=== PATIENT | male | born 1970 | race Caucasian/White ===

== ENCOUNTER 2019-01-02 03:23 | Emergency (ER) | payer BC, OTHER ==
[~2019-01-02 03:23] MED LIST: ADVI1CAP2 PO; AMLO5TAB6 PO; BACL10TA2 PO; CIPR-249 PO; DICL75TA PO; EXCETAB80 PO; FLAG500T PO; FLEXERIL PO; GABA-843 PO; LIDO1OIN2 TOP; MELO15TA28 PO; NORV5TAB PO; SOMA250T PO; TRAM50TA2 PO; VICO5TAB17 PO; VICODIN PO; [UNRECOGNIZED DRUG - OTHER] TOP; [UNRECOGNIZED DRUG - REMARK] PO
[2019-01-02] MEDS ORDERED: NS 1,000 ML IV ONE (04:45)
[2019-01-02] MEDS ORDERED: METOCLOPRAMIDE INJ 10MG/2ML VIAL (J2765) IV ONE (04:45)
[2019-01-02 05:05] LABS: BASO # 0.1 10^3/uL (0.0-0.2); BASO % 0.8 % (0.0-1.0); EOS # 0.2 10^3/uL (0.0-0.50); EOS % 1.4 % (0.0-3.0); HEMATOCRIT 47.2 % (42.0-52.0); HEMOGLOBIN 15.8 g/dl (13.5-17.5); LYMPH # 1.3 10^3/uL (1.5-4.5); LYMPH % 11.5 % (24.0-44.0); MEAN CORPUSCULAR HEMOGLOBIN 28.9 pg (27.0-33.0); MEAN CORPUSCULAR HGB CONC 33.5 g/dl (32.0-36.5); MEAN CORPUSCULAR VOLUME 86.4 fl (80.0-96.0); MONO # 0.6 10^3/uL (0.0-0.8); NEUTROPHILS # 9.2 10^3/uL (1.8-7.7); NEUTROPHILS % 80.9 % (36.0-66.0); PLATELET COUNT, AUTOMATED 230 10^3/uL (150-450); RED BLOOD COUNT 5.46 10^6/uL (4.30-6.10); WHITE BLOOD COUNT 11.4 10^3/uL (4.0-10.0)
[2019-01-02] MEDS ORDERED: diphenhydrAMINE INJ 50MG/ML VIAL (J1200) IV STA (05:12)
[2019-01-02] MEDS ORDERED: HALOPERIDOL 5 MG/ML VIAL (J1630) IV STA (05:12)
[2019-01-02 05:29] LABS: ALBUMIN 3.8 GM/DL (3.2-5.2); ALT/SGPT 46 U/L (12-78); BILIRUBIN,DIRECT < 0.1 MG/DL (0.0-0.2); BILIRUBIN,TOTAL 0.4 MG/DL (0.2-1.0); BLOOD UREA NITROGEN 16 MG/DL (7-18); C REACTIVE PROTEIN QUANTITATIV 0.32 MG/DL (0.00-0.30); CALCIUM LEVEL 8.4 MG/DL (8.5-10.1); CARBON DIOXIDE LEVEL 25 MEQ/L (21-32); CHLORIDE LEVEL 112 MEQ/L (98-107); CPK CREATINE PHOSPHOKINASE 276 U/L (39-308); CREATININE FOR GFR 1.19 MG/DL (0.70-1.30); ERYTHROCYTE SEDIMENTATION RATE 4 mm/hr (0-20); GLOMERULAR FILTRATION RATE > 60.0 (>56); GLUCOSE, FASTING 140 MG/DL (70-100); LIPASE 140 U/L (73-393); MB/CK RELATIVE INDEX 1.81 (< OR =4); POTASSIUM SERUM 4.2 MEQ/L (3.5-5.1); SODIUM LEVEL 143 MEQ/L (136-145); TOTAL PROTEIN 7.3 GM/DL (6.4-8.2); TROPONIN I < 0.02 NG/ML (< 0.10)
[2019-01-02] MEDS ORDERED: ISOVUE-370 76% 100ML VIAL (Q9967) As Ordered ONE (05:57)
[2019-01-02] MEDS ORDERED: KETOROLAC 30 MG/ML VIAL (J1885) IV ONE (06:00)
--- NOTE | 2019-01-02 06:40 | REPVR ---
EXAM: CT Left Lower Extremity Without Contrast. Hip EXAM DATE/TIME: 01/02/2019 6:25 AM CLINICAL HISTORY: 48 years old, male; Pain; Hip; Left; Additional info: Hip pain / vomiting TECHNIQUE: Imaging protocol: CT of the Left lower extremity without contrast was performed. Exam focused on the hip. Coronal and sagittal reformatted images were created and reviewed. Radiation optimization: All CT scans at this facility use at least one of these dose optimization techniques: automated exposure control; mA and/or kV adjustment per patient size (includes targeted exams where dose is matched to clinical indication); or iterative reconstruction. COMPARISON: SR CT ABD PELVIS WITH CONTRAST 03/13/2015 8:18 PM FINDINGS: Bones/joints: There is no appreciable joint effusion. There is no evidence of acute fracture or dislocation. There is mild joint space narrowing at the superolateral aspect of the left hip. Small subchondral cysts and mild subchondral sclerosis are present. Calcifications are seen adjacent to the greater trochanter, probably related to calcific tendinitis, at least some of which was present on the prior CT scan from 2014. Soft tissues: The musculature appears unremarkable. No fluid collection is identified. IMPRESSION: No definite acute abnormality identified. Calcification adjacent to the greater trochanter likely related to calcific tendinitis, at least some of which was present on the prior exam from 2014. Electronically signed by: Alexandra Ervin On 01/02/2019 06:39:36 AM
--- NOTE | 2019-01-02 06:44 | REPVR ---
EXAM: CT Abdomen and Pelvis With Contrast EXAM DATE/TIME: 01/02/2019 6:25 AM CLINICAL HISTORY: 48 years old, male; Pain; Abdominal pain; Additional info: Hip pain / vomiting TECHNIQUE: Imaging protocol: Axial computed tomography images of the abdomen and pelvis with intravenous contrast. Coronal and sagittal reformatted images were created and reviewed. Radiation optimization: All CT scans at this facility use at least one of these dose optimization techniques: automated exposure control; mA and/or kV adjustment per patient size (includes targeted exams where dose is matched to clinical indication); or iterative reconstruction. Contrast material: iso 370 Contrast volume: 100 ml Contrast route: iv COMPARISON: CT ABD PELVIS WITH CONTRAST 03/13/2015 8:18 PM FINDINGS: Lower thorax: There is minimal, nonspecific dependent density in the lung bases. Assessment limited by motion artifact through the lung bases. ABDOMEN: Liver: There is a diffuse decrease in hepatic parenchymal density, consistent with fatty infiltration. Gallbladder and bile ducts: The gallbladder is normal with no stones or biliary ductal dilation. Pancreas: The pancreas is normal with no ductal dilation. Spleen: The spleen is normal. Adrenals: The adrenal glands are normal. Kidneys and ureters: There is a nonobstructing 3 mm stone in the right kidney midpole. There are no ureteral stones or hydronephrosis. Stomach and bowel: Diverticulosis is present throughout the colon but most prominent in the left colon and the proximal sigmoid colon. There is no dilation or thickening of the colon. The small bowel appears unremarkable. Appendix: A normal appendix is identified. PELVIS: Bladder: The bladder is unremarkable. No stones identified. Reproductive: The prostate gland and seminal vesicles are normal. ABDOMEN and PELVIS: Intraperitoneal space: There is no evidence of free intraperitoneal or pelvic fluid. There is no free intraperitoneal air. Bones/joints: No suspicious osseous lesions. No acute fractures or dislocations. Degenerative endplate changes are seen at multiple levels in the visualized spine. Soft tissues: There is a small periumbilical hernia containing fat. Vasculature: The aorta demonstrates mild atherosclerotic calcification. Lymph nodes: No lymphadenopathy is seen. IMPRESSION: 1. Diverticulosis but no evidence of acute diverticulitis. 2. Fatty liver. 3. Nonobstructing 3 mm stone in the right kidney. No hydronephrosis or ureteral stones identified. Electronically signed by: Alexandra Ervin On 01/02/2019 06:44:23 AM
[2019-01-02] MEDS ORDERED: dexameTHASONE 20 MG/5 ML VIAL (J1100) IV ONE (06:45)
[2019-01-02] MEDS ORDERED: REGL10TA6 PO (06:49)
[2019-01-02] MEDS ORDERED: PRED20TA PO (06:49)
[2019-01-02 07:35] VITALS: BP 152/80
== END 2019-01-02 07:43 | disposition home or self-care (01) ==
LOC: M ED 03:23
DX: M25.552 Pain in left hip (principal); M65.252 Calcific tendinitis, left thigh; T42.8X5A Adverse effect of antiparkinsonism drugs and other central muscle-tone depressants, initial encounter; R11.10 Vomiting, unspecified; I10 Essential (primary) hypertension; M54.5 Low back pain; Z88.5 Allergy status to narcotic agent; Z88.6 Allergy status to analgesic agent; Z91.040 Latex allergy status; Z91.013 Allergy to seafood; Z79.899 Other long term (current) drug therapy
CPT/HCPCS: 73700; 74177; 80048; 80076; 82550; 82553; 83690; 84484; 85025; 85652; 86140; 96374; 96375; 99284; J1100; J1200; J1630; J1885; J2765; Q9967

== ENCOUNTER → 2019-03-31 | Outpatient (CLI) | payer BC, OTHER ==
[~2019-03-31] MED LIST changes: +PRED20TA PO; +REGL10TA6 PO
[2019-03-31 20:31] LABS: BASO # 0.1 10^3/uL (0.0-0.2); BASO % 0.5 % (0.0-1.0); EOS # 0.8 10^3/uL (0.0-0.50); EOS % 7.2 % (0.0-3.0); HEMATOCRIT 44.4 % (42.0-52.0); HEMOGLOBIN 15.4 g/dl (13.5-17.5); LYMPH # 2.2 10^3/uL (1.5-4.5); MEAN CORPUSCULAR HEMOGLOBIN 29.6 pg (27.0-33.0); MEAN CORPUSCULAR HGB CONC 34.7 g/dl (32.0-36.5); MEAN CORPUSCULAR VOLUME 85.2 fl (80.0-96.0); MONO # 0.8 10^3/uL (0.0-0.8); MONO % 7.1 % (0.0-5.0); NEUTROPHILS # 7.1 10^3/uL (1.8-7.7); NEUTROPHILS % 64.9 % (36.0-66.0); PLATELET COUNT, AUTOMATED 264 10^3/uL (150-450); RED BLOOD COUNT 5.21 10^6/uL (4.30-6.10); WHITE BLOOD COUNT 10.9 10^3/uL (4.0-10.0)
[2019-03-31 21:03] LABS: ALBUMIN 3.9 GM/DL (3.2-5.2); ALT/SGPT 41 U/L (12-78); BILIRUBIN,TOTAL 0.5 MG/DL (0.2-1.0); BLOOD UREA NITROGEN 23 MG/DL (7-18); CALCIUM LEVEL 8.8 MG/DL (8.5-10.1); CARBON DIOXIDE LEVEL 33 MEQ/L (21-32); CHLORIDE LEVEL 99 MEQ/L (98-107); CREATININE FOR GFR 1.24 MG/DL (0.70-1.30); FREE T4 0.95 NG/DL (0.76-1.46); GLOMERULAR FILTRATION RATE > 60.0 (>56); GLUCOSE, FASTING 93 MG/DL (70-100); POTASSIUM SERUM 3.2 MEQ/L (3.5-5.1); SODIUM LEVEL 140 MEQ/L (136-145); TOTAL PROTEIN 7.3 GM/DL (6.4-8.2)
[2019-03-31 21:45] LABS: ERYTHROCYTE SEDIMENTATION RATE 2 mm/hr (0-20)
[2019-04-04 00:06] LABS: Lyme Disease IgG/IgM Antibodie <0.91 ISR (0.00-0.90); Lyme Disease IgM Ab Quantitati <0.80 index (0.00-0.79)
== END ==
LOC: M WUC 18:22
PROVIDERS: ATTEND Physician Assistant
DX: R21 Rash and other nonspecific skin eruption (principal)

== ENCOUNTER → 2020-05-23 | Outpatient (CLI) | payer OTHER, BC ==
[~2020-05-23] MED LIST changes: +AMLO1TAB24 PO; -AMLO5TAB6 PO; +DIAZ5TAB PO; +EXCETAB33 PO; +HYDR-643 PO; +PROP60TA14 PO; +SILD100T PO
== END ==
LOC: M LABSMTC 10:37
PROVIDERS: ATTEND Anesthesiology
DX: Z03.818 Encounter for observation for suspected exposure to other biological agents ruled out (principal); Z11.59 Encounter for screening for other viral diseases
CPT/HCPCS: C9803; U0003

== ENCOUNTER → 2020-05-28 | Outpatient (CLI) | payer OTHER ==
[~2020-05-28] MED LIST changes: +MIDAZOLAM INJ 2MG/2ML VIAL (J2250 PER 1MG) As Ordered ONE
[2020-05-28 12:20] VITALS: BP 139/81
--- NOTE | 2020-05-28 12:50 | REPVR ---
PROCEDURE INFORMATION: Exam: MR Lumbar Spine Without Contrast. Exam date and time: 05/28/2020 11:24 AM Age: 50 years old Clinical indication: Low back pain; Additional info: Lbp w radiating to legs TECHNIQUE: Imaging protocol: Multiplanar magnetic resonance images of the lumbar spine without intravenous contrast. COMPARISON: No relevant prior studies available. FINDINGS: Vertebrae: There is 3 mm of grade 1 retrolisthesis of L5 with respect to S1. Normal vertebral body alignment is otherwise preserved. Vertebral body heights are within normal limits. Spinal cord: Normal signal. No cord compression. L1-L2: There is shallow disc bulging. There is mild facet hypertrophy. There is mild bilateral neural foraminal narrowing. L2-L3: There is mild facet hypertrophy. There is mild bilateral neural foraminal narrowing. L3-L4: There is shallow disc bulging. There is mild facet hypertrophy. Trace fluid is noted within the facet joints. There is mild bilateral neural foraminal narrowing. L4-L5: There is diffuse disc bulging. There is severe right and moderate left facet hypertrophy. Fluid is noted within the right facet joint. There is moderate right lateral recess stenosis. There is mild canal stenosis. There mild moderate bilateral neural foraminal narrowing. L5-S1: There is diffuse disc bulging. There is moderate facet hypertrophy. There is mild right and moderate to severe left neural foraminal narrowing. Soft tissues: Unremarkable. IMPRESSION: Degenerative disc disease and spondylosis. At L5/S1, changes contribute to moderate to severe left neural foraminal narrowing. Electronically signed by: Annie Townsend On 05/28/2020 12:49:43 PM
== END ==
LOC: M SDC 10:13
PROVIDERS: ATTEND Family Medicine
DX: M51.36 Other intervertebral disc degeneration, lumbar region (principal); M47.816 Spondylosis without myelopathy or radiculopathy, lumbar region; M48.061 Spinal stenosis, lumbar region without neurogenic claudication; M54.5 Low back pain
CPT/HCPCS: 72148; 99156; 99157; J2250

== ENCOUNTER 2022-03-05 17:50 | Emergency (ER) | payer OTHER ==
[~2022-03-05] VITALS: Ht 160 cm; Wt 106.2 kg
[~2022-03-05 17:50] MED LIST changes: +EXCETAB32 PO; -EXCETAB33 PO; +GABA-282 PO; -GABA-843 PO; -MIDAZOLAM INJ 2MG/2ML VIAL (J2250 PER 1MG) As Ordered ONE
[2022-03-05 17:51] VITALS: BP 160/90
[2022-03-06] MEDS ORDERED: METR-265 PO (16:16)
[2022-03-06] MEDS ORDERED: CIPR-249 PO (16:16)
== END 2022-03-05 20:07 | disposition left against medical advice (07) ==
LOC: M ED 17:50
DX: Z53.21 Procedure and treatment not carried out due to patient leaving prior to being seen by health care provider (principal)

== ENCOUNTER 2022-03-06 12:40 | Emergency (ER) | payer OTHER ==
[~2022-03-06] VITALS: Ht 160 cm; Wt 100.0 kg
[2022-03-06 13:49] LABS: BASO # 0.1 10^3/uL (0.0-0.2); BASO % 0.9 % (0.0-1.0); EOS # 0.1 10^3/uL (0.0-0.5); EOS % 0.9 % (0.0-3.0); HEMOGLOBIN 14.5 g/dl (13.5-17.5); LYMPH % 18.8 % (24.0-44.0); NEUTROPHILS # 7.6 10^3/uL (1.5-8.5); PLATELET COUNT, AUTOMATED 233 10^3/uL (150-450); WHITE BLOOD COUNT 10.8 10^3/uL (4.0-10.0)
[2022-03-06 14:13] LABS: ALBUMIN 3.6 GM/DL (3.2-5.2); BILIRUBIN,DIRECT 0.3 MG/DL (0.0-0.2); BILIRUBIN,TOTAL 0.9 MG/DL (0.2-1.0); TOTAL PROTEIN 7.4 GM/DL (6.4-8.2)
[2022-03-06] MEDS ORDERED: NS 1,000 ML IV ONE (14:35)
[2022-03-06] MEDS ORDERED: ISOVUE-370 76% 100ML VIAL As Ordered ONE (14:42)
[2022-03-06] MEDS ORDERED: CIPROFLOXACIN 400 MG in IV 1 EA IV ONE (15:50)
[2022-03-06] MEDS ORDERED: metroNIDAZOLE (FLAGYL) 500MG TABLET PO ONE (15:50)
[2022-03-06] MEDS ORDERED: CIPR-249 PO (16:16)
[2022-03-06] MEDS ORDERED: METR-265 PO (16:16)
[2022-03-06 17:30] VITALS: BP 153/94
== END 2022-03-06 17:35 | disposition home or self-care (01) ==
LOC: M ED 12:40
DX: K57.92 Diverticulitis of intestine, part unspecified, without perforation or abscess without bleeding (principal); I10 Essential (primary) hypertension; J45.909 Unspecified asthma, uncomplicated; E78.00 Pure hypercholesterolemia, unspecified; G43.909 Migraine, unspecified, not intractable, without status migrainosus; K21.9 Gastro-esophageal reflux disease without esophagitis; F33.9 Major depressive disorder, recurrent, unspecified; F41.9 Anxiety disorder, unspecified; Z79.899 Other long term (current) drug therapy; Z79.82 Long term (current) use of aspirin
CPT/HCPCS: 74177; 80047; 80076; 83690; 85025; 96361; 96365; 99284; J0744; Q9967

== ENCOUNTER → 2022-08-31 | Outpatient (CLI) | payer OTHER ==
[~2022-08-31] MED LIST changes: +METR-265 PO
== END ==
LOC: M RAD 09:38
PROVIDERS: ATTEND Physician Assistant
DX: Z12.5 Encounter for screening for malignant neoplasm of prostate (principal); N43.3 Hydrocele, unspecified
CPT/HCPCS: 36415; 76870; 93976; G0103

== ENCOUNTER 2023-11-05 08:07 | Day surgery (SDC) | payer OTHER ==
[~2023-11-05] VITALS: Ht 160 cm; Wt 97.9 kg
[~2023-11-05 08:07] MED LIST changes: +FLOM0.4C39 PO; +METH-1165 PO; +MIRT1TAB17 PO; +NEUR600T PO; +OXYB15TA14 PO; +PROA1AER2 IN; +ROSU40TA4 PO; +WELL200T PO
[2023-11-05] MEDS: NS 1,000 ML IV ONE (08:23)
[2023-11-05 10:15] VITALS: BP 150/86; TEMP 96.4; O2SAT 99
== END 2023-11-05 10:20 | disposition home or self-care (01) ==
LOC: M OPP 08:07
PROVIDERS: ATTEND Surgery
DX: Z12.11 Encounter for screening for malignant neoplasm of colon (principal); Z86.010 Personal history of colon polyps; K64.4 Residual hemorrhoidal skin tags; K57.30 Diverticulosis of large intestine without perforation or abscess without bleeding; F17.220 Nicotine dependence, chewing tobacco, uncomplicated; Z79.02 Long term (current) use of antithrombotics/antiplatelets; Z79.51 Long term (current) use of inhaled steroids; Z79.891 Long term (current) use of opiate analgesic; Z79.899 Other long term (current) drug therapy; Z88.5 Allergy status to narcotic agent; Z88.6 Allergy status to analgesic agent; Z91.013 Allergy to seafood

== ENCOUNTER 2024-07-13 12:35 | Emergency (ER) | payer OTHER ==
[~2024-07-13] VITALS: Ht 160 cm; Wt 95.9 kg
[~2024-07-13 12:35] MED LIST changes: +GABA-1172 PO; -GABA-282 PO; -ROSU40TA4 PO; +ROSU40TA81 PO
[2024-07-13 12:39] VITALS: TEMP 97.1
[2024-07-13 14:14] LABS: BASO # 0.1 10^3/uL (0.0-0.2); BASO % 0.8 % (0.0-1.0); EOS % 0.3 % (0.0-3.0); HEMATOCRIT 45.3 % (42.0-52.0); HEMOGLOBIN 15.6 g/dl (13.5-17.5); LYMPH # 1.1 10^3/uL (1.5-5.0); LYMPH % 9.9 % (24.0-44.0); MEAN CORPUSCULAR HEMOGLOBIN 29.1 pg (27.0-33.0); MEAN CORPUSCULAR HGB CONC 34.4 g/dl (32.0-36.5); MEAN CORPUSCULAR VOLUME 84.5 fl (80.0-96.0); MONO # 0.3 10^3/uL (0.0-0.8); MONO % 2.8 % (2.0-8.0); NEUTROPHILS # 9.2 10^3/uL (1.5-8.5); PLATELET COUNT, AUTOMATED 235 10^3/uL (150-450); RED BLOOD COUNT 5.36 10^6/uL (4.30-6.10); WHITE BLOOD COUNT 10.6 10^3/uL (4.0-10.0)
[2024-07-13] MEDS: NS 1,000 ML IV ONE (14:30)
[2024-07-13] MEDS: ONDANSETRON 4MG 2ML VIAL IV ONE (14:34)
[2024-07-13] MEDS: MORPHINE 2 MG/ML 1ML VIAL IV ONE (14:34)
[2024-07-13 14:47] LABS: ALBUMIN 4.7 G/DL (3.2-5.2); BILIRUBIN,DIRECT 0.4 MG/DL (<0.4); BILIRUBIN,TOTAL 1.2 MG/DL (0.3-1.2); TOTAL PROTEIN 7.7 G/DL (5.7-8.2)
[2024-07-13 16:00] VITALS: BP 155/87; O2SAT 99
[2024-07-13] MEDS: MORPHINE 4 MG/ML 1ML VIAL IV ONE (16:09)
[2024-07-13] MEDS ORDERED: LEVO1TAB40 PO (17:59)
[2024-07-13] MEDS ORDERED: FLOM0.4C39 PO (18:01)
[2024-07-13] MEDS ORDERED: ONDA-282 PO (18:02)
[2024-07-13] MEDS: cefTRIAXone SOD 1GM VIAL IM ONE (18:23)
[2024-07-13] MEDS: LIDOCAINE 1% SDV 5ML VIAL DILUENT ONE (18:23)
[2024-07-13] MEDS ORDERED: ACET-897 PO (18:42)
== END 2024-07-13 18:52 | disposition home or self-care (01) ==
LOC: M ED 12:35
DX: N10 Acute pyelonephritis (principal); N20.1 Calculus of ureter; I10 Essential (primary) hypertension; M54.9 Dorsalgia, unspecified; Z87.442 Personal history of urinary calculi; K57.30 Diverticulosis of large intestine without perforation or abscess without bleeding; K42.9 Umbilical hernia without obstruction or gangrene; Z79.899 Other long term (current) drug therapy; Z88.5 Allergy status to narcotic agent; Z91.013 Allergy to seafood
CPT/HCPCS: 74176; 80047; 80076; 81001; 83690; 85025; 96372; 96374; 96375; 96376; 99284; J0696; J2405

== ENCOUNTER → 2024-07-27 | Outpatient (CLI) | payer OTHER ==
[~2024-07-27] MED LIST changes: +ACET-897 PO; +BACL1TAB8 PO; +CLON0.5T17 PO; +DICL100G10 TOP; +LEVO1TAB40 PO; +ONDA-282 PO
== END ==
LOC: M RAD 10:40
PROVIDERS: ATTEND Physician Assistant
DX: N43.3 Hydrocele, unspecified (principal); N50.3 Cyst of epididymis; N50.819 Testicular pain, unspecified

== ENCOUNTER 2024-08-03 05:52 | Day surgery (SDC) | payer OTHER ==
[~2024-08-03] VITALS: Ht 160 cm; Wt 91.5 kg
[2024-08-03] MEDS ORDERED: ONDANSETRON 4MG 2ML VIAL As Ordered ONE (07:03)
[2024-08-03] MEDS ORDERED: propofoL 200 MG/20 ML VIAL As Ordered ONE (07:03)
[2024-08-03] MEDS ORDERED: LIDOCAINE 2% 100MG/5ML SDV (FOR ANES.) As Ordered ONE (07:03)
[2024-08-03] MEDS ORDERED: MIDAZOLAM INJ 2MG/2ML VIAL As Ordered ONE (07:04)
[2024-08-03] MEDS ORDERED: fentaNYL 100 MCG/2 ML INJECTION As Ordered ONE (07:04)
[2024-08-03] MEDS ORDERED: KETOROLAC 60MG 2ML VIAL As Ordered ONE (07:05)
[2024-08-03] MEDS: ceFAZolin SOD 2 GM in IV 1 EA IV ONE (07:30)
[2024-08-03] MEDS ORDERED: ACETAMINOPHEN 1000MG 100ML IV BAG As Ordered ONE (07:53)
[2024-08-03] MEDS: LIDOCAINE 1% MDV 20ML VIAL As Ordered ONE (08:03)
[2024-08-03] MEDS: BACITRACIN OINTMENT 30GM TUBE As Ordered ONE (08:22)
[2024-08-03] MEDS: LIDOCAINE 2% MDV 20ML VIAL As Ordered ONE (08:22)
[2024-08-03] MEDS ORDERED: fentaNYL 100 MCG/2 ML INJECTION IV PRN (08:25)
[2024-08-03] MEDS ORDERED: CEPH500T PO (08:32)
[2024-08-03] MEDS ORDERED: HYDR-3713 PO (08:32)
[2024-08-03] MEDS: ONDANSETRON 4MG 2ML VIAL IV PRN (09:33)
[2024-08-03 09:48] VITALS: BP 181/84
[2024-08-03 10:30] VITALS: TEMP 98; O2SAT 95
== END 2024-08-03 10:44 | disposition home or self-care (01) ==
LOC: M SDC 05:52
PROVIDERS: ATTEND Urology
DX: N43.3 Hydrocele, unspecified (principal); R31.29 Other microscopic hematuria; I10 Essential (primary) hypertension; N40.1 Benign prostatic hyperplasia with lower urinary tract symptoms; R33.8 Other retention of urine; E78.00 Pure hypercholesterolemia, unspecified; Z79.899 Other long term (current) drug therapy; Z79.1 Long term (current) use of non-steroidal anti-inflammatories (NSAID); F17.220 Nicotine dependence, chewing tobacco, uncomplicated; Z87.19 Personal history of other diseases of the digestive system; Z88.5 Allergy status to narcotic agent; Z91.013 Allergy to seafood; G43.909 Migraine, unspecified, not intractable, without status migrainosus
CPT/HCPCS: 54640; 55040; 88302; J0131; J0665; J0690; J1100; J1885; J2250; J2405; J3010

== ENCOUNTER → 2024-08-23 | Outpatient (REF) | payer OTHER ==
[~2024-08-23] MED LIST changes: +CEPH500T PO; +HYDR-3713 PO
[2024-08-23 15:17] LABS: APPEARANCE, URINE CLEAR (CLEAR); BACTERIA, URINE AUTO NEGATIVE (NEGATIVE); BILIRUBIN, URINE AUTO NEGATIVE (NEGATIVE); BLOOD, URINE BLOOD NEGATIVE (NEGATIVE); COLOR, URINE YELLOW (YELLOW); GLUCOSE, URINE (UA) AUTO NEGATIVE (NEGATIVE); KETONE, URINE AUTO NEGATIVE (NEGATIVE); LEUKOCYTE ESTERASE, URINE AUTO NEGATIVE (NEGATIVE); MUCUS, URINE SMALL (NEGATIVE); NITRITE, URINE AUTO NEGATIVE (NEGATIVE); PROTEIN, URINE AUTO NEGATIVE (NEGATIVE); RBC, URINE AUTO 0 /HPF (0-3); SQUAMOUS EPITHELIAL CELL UR AU 0 /HPF (0-6); UROBILINOGEN, URINE AUTO 0.2 mg/dL (0.0-2.0); WBC, URINE AUTO 1 /HPF (0-3)
== END ==
LOC: M LAB REF 14:53
PROVIDERS: ATTEND Physician Assistant
DX: R31.21 Asymptomatic microscopic hematuria (principal)

== ENCOUNTER → 2024-10-10 | Outpatient (CLI) | payer OTHER ==
[~2024-10-10] MED LIST changes: +LIDOCAINE 2% 100MG/5ML SDV (FOR ANES.) ONE; +MIDAZOLAM INJ 2MG/2ML VIAL As Ordered ONE; +propofoL 200 MG/20 ML VIAL ONE
[2024-10-10 10:45] VITALS: TEMP 97.5
[2024-10-10 13:45] VITALS: BP 152/78; O2SAT 98
== END ==
LOC: M RADPRO 10:20
PROVIDERS: ATTEND Nurse Practitioner Family
DX: H53.453 Other localized visual field defect, bilateral (principal)
CPT/HCPCS: 70540; 70551; J2250